=== PATIENT | female | born 1950 | race Caucasian/White ===

== ENCOUNTER 2017-04-09 16:20 | Day surgery (SDC) | payer MEDICARE, OTHER ==
[~2017-04-09] VITALS: Ht 152.4 cm; Wt 71.3 kg
--- NOTE | ~2017-04-09 | HP ---
ADMIT: 04/09/2017 RM/LOC: [facility] MR#: [id number] [address] [address] ALONDRA HAWKINS [address] [place] [id number] History and Physical SEX: F AGE: 67 : 1950 Corrected: EDIT: 04/09/20172154 ajf DATE OF SERVICE: ADDENDUM: Alondra was seen in consult from [place] with complaints of right upper quadrant abdominal pain. I have reviewed Alexis Dimas's note, and I am in agreement with his documentation, assessment, and plan. I did discuss risks of laparoscopic cholecystectomy with Alondra including bleeding, infection, damage to intraabdominal organs, including the biliary tree, conversion to an open procedure. She understands these risks and does wish to proceed. Tone Zheng MD/ hill JOB #: [id number] CC: Tone Zheng, Attending Physician NO FAMILY PHYSICIAN, Family Physician Corrected: EDIT: 04/09/20172154 ajf
--- NOTE | 2017-04-14 11:05 | OR ---
ADMIT: 04/09/2017 RM/LOC: [facility] MR#: [id number] [address] [address] ALONDRA HAWKINS [address] [place] [address] Operative/Delivery Room Report SEX: F AGE: 67 : 1950 SURGERY DATE: 04/09/2017 SURGEON: Tone Zheng MD PREOPERATIVE DIAGNOSIS: Cholelithiasis with cholecystitis. POSTOPERATIVE DIAGNOSIS: Cholelithiasis with cholecystitis. PROCEDURE: Laparoscopic cholecystectomy. MULTIMEDIA SPECIALIST: CRISSY Bennett, whose assistance was necessary for laparoscopic visualization and tissue retraction. ANESTHESIA: General endotracheal. ESTIMATED BLOOD LOSS: 10 mL. DESCRIPTION OF PROCEDURE: The patient was taken to the operating room and placed supine on the operating room table. General anesthesia was established. The abdomen was prepped and draped in the standard surgical fashion. A 5 mm infraumbilical incision was made in the skin. The fascia was grasped with the Tab clamp, and a Veress needle was advanced into the peritoneal cavity. Carbon dioxide was used to insufflate the abdomen to 15 mmHg pressure. The Veress needle was withdrawn, and a 5 mm Optiview trocar was placed. Laparoscope was advanced and showed intraperitoneal position with no damage to underlying structures. Next, an 11 mm subxiphoid port and 2 right lateral 5 mm ports were placed under visualization. The gallbladder was markedly distended and had to be decompressed to allow grasping. This was retracted cephalad. Inflammatory adhesions to the gallbladder edge were taken down with cautery and retraction to Calot's triangle. The cystic duct was identified, skeletonized, and the view of safety was obtained. The cystic duct was clipped on the gallbladder side and laparoscopic scissors were used to open the cystic duct. Attempts were made at passing a cholangiogram catheter distally into the cystic duct to allow for cholangiogram. Repeated attempts, however, were unsuccessful in getting the catheter beyond what appeared to be maybe a valve in the cystic duct. The distal cystic duct was doubly clipped proximally, clipped again singly and divided. The cystic artery was then skeletonized, doubly clipped proximally, singly clipped ADMIT: 04/09/2017 RM/LOC: [facility] MR#: [id number] [facility] [address] [place] [id number] ALONDRA HAWKINS [address] [place] [address] Operative/Delivery Room Report SEX: F AGE: 67 : 1950 distally and divided. The gallbladder was excised from the gallbladder fossa with Bovie cautery. It was placed in an EndoCatch bag and removed through the subxiphoid port site. The right upper quadrant was irrigated. There was no evidence of bleeding, no evidence of bile leak, and the clips remained intact on the cystic duct and artery. The ports were removed under visualization without evidence of bleeding. The fascial margin of the subxiphoid port site was approximated with the suture passer and an 0 Vicryl tie. The abdomen was allowed to deflate. Skin edges were approximated with 4-0 Monocryl in a subcuticular fashion and Dermabond. Local anesthetic was injected at the incisions. Sponge, needle, and instrument counts were correct at the end of the case. The patient tolerated the procedure well and transferred to the recovery area in stable condition. Tone Zheng MD/ hill JOB #: [id number] CC: Tone Zheng, Attending Physician FAMILY PHYSICIAN, Family Physician
== END 2017-04-09 20:14 | disposition home or self-care (01) ==
LOC: SSS 16:20
PROC: 0FT44ZZ Resection of Gallbladder, Percutaneous Endoscopic Approach (ICD-10-PCS; principal; 2017-04-09)
DX: K80.12 Calculus of gallbladder with acute and chronic cholecystitis without obstruction (principal); Z88.2 Allergy status to sulfonamides; K21.9 Gastro-esophageal reflux disease without esophagitis; Z98.890 Other specified postprocedural states